=== PATIENT | female | born 2000 | race Two or more races ===

== ENCOUNTER 2025-06-23 22:56 | Emergency (ER) | payer MEDICAID, SELFPAY ==
[2025-06-23 22:57] VITALS: BMI 36.6
[2025-06-23 23:35] VITALS: BP 115/73; PULSE 90; RESP 18; TEMP 37.2; O2SAT 99
--- NOTE | 2025-06-24 00:23 | PD.EDVAGBL ---
ED OB Contraction Preg RMI/HPI General Chief complaint: Vaginal Bleeding Stated complaint: VAGINAL BLEEDING AND 13 WEEKS Time Seen by Provider: 06/23/25 23:44 Arrival date/time: 06/23/25 22:56 RME / HPI RME / HPI Narrative: Dr. Rosado?s Main ED Evaluation: 24yo female with EGA 13 weeks coming in with mild abdominal cramping and vaginal spotting x 6 hours. No lightheadedness, dizziness, or near syncope. No fever or chills. No dysuria. PMH/PSH unremarkable excluding . Nondrinker. Nonsmoker. Related Data Home Medications ?Medication ?Instructions ?Recorded ?Confirmed folic acid 800 mcg tablet 0.8 mg PO QDAY 03/20/22 03/20/22 vitamin-ferrous fumarate 1 tab PO QDAY 03/20/22 03/20/22 28 mg iron-folic acid 800 mcg tablet ( Vitamins with Minerals) Previous Rx's ?Medication ?Instructions ?Recorded hydrocodone 5 mg-acetaminophen 325 1 tab PO Q4H PRN pain #30 tabs 03/21/22 mg tablet amoxicillin 875 mg-potassium 1 tab PO Q12H #10 tabs 03/23/22 clavulanate 125 mg tablet doxylamine succinate 25 mg tablet 25 mg PO Q6H PRN allergy symptoms 06/24/25 #10 tabs hydrocodone 5 mg-acetaminophen 325 1 tab PO Q8H PRN pain #14 tabs 06/24/25 mg tablet Allergies Allergy/AdvReac Type Severity Reaction Status Date / Time No Known Allergies Allergy Verified 06/23/25 22:57 Review of Systems Review of Systems Systems Reviewed: All systems reviewed, normal except as documented Past Medical History Past Medical History NEUROLOGIC: Negative Neurological Disorders or Seizures CARDIAC: Negative Cardiac Disorders or Congestive Heart Failure RESPIRATORY: Negative Chronic Obstructive Pulmonary Disease (COPD) GASTROINTESTINAL: Positive Gastrointestinal Disorders and Obesity; Negative Hepatitis GENITOURINARY: Negative Genitourinary Disorders or Renal Disease MUSCULOSKELETAL: Negative Musculoskeletal Disorders ENDOCRINE: Negative Endocrine Disorders, Diabetes Mellitus Type 1 or Diabetes Mellitus Type 2 HEMATOLOGIC: Positive Blood Disorders and Anemia OTHER HISTORY: Negative Hospitalization, Autoimmune Disease, Down Syndrome, Developmental Delay, Shingles, Falls, Blood Transfusions, Blood Transfusion Reaction, Anesthesia Reactions, Organ Transplant, Chemotherapy, Radiation Therapy, Hyperbaric Therapy, MRSA, VRSA, Vancomycin-Resistant Enterococci, Human Immunodeficiency Virus (HIV), Chicken Pox, Measles, Mumps, Rubella (Kazakh Measles), Pertussis, Clostridium Difficile or Cancer Family History FAMILY HISTORY: Negative Family Psychiatric Problems, Family Respiratory Disorders, Family Cardiac Disorders, Family Gastrointestinal Problems, Family Cancer, Family Surgery or Family Anesthesia Reaction Surgical History SURGICAL: Negative Section or Organ Transplant Social History SMOKING STATUS: Never smoker SUBSTANCE USE: does not use ED Exam Narrative Physical exam: GENERAL APPEARANCE: alert and oriented x 4, well-developed, well-nourished, nontoxic, no acute distress VITALS: All vitals were reviewed and the pulse ox is 99% on room air, which is normal according to my interpretation. HEENT: Normocephalic, atraumatic; pupils equal, round, reactive to light; EOMI; mucous membranes pink, moist; oropharynx clear NECK: Supple LUNGS: CTABL; no wheezes, no rales, no rhonchi HEART: Regular rate, regular rhythm; normal S1, S2; no murmurs ABDOMEN: non distended; soft, no tenderness BACK: no CVA tenderness EXTREMITIES: atraumatic; no edema NEUROLOGIC: awake; alert and oriented x4; cranial nerves II-XII grossly intact; no focal sensory or motor deficits PSYCHIATRIC: appropriate mood and affect SKIN: warm, dry, normal color; no rashes Course Quality Measures none Orders Category Date Time Status Continuous Pulse Oximetry NOW Care 06/24/25 00:38 Active NPO NEEDED Care 06/24/25 00:38 Active US OB <= 14 weeks fetus Stat Exams 06/24/25 00:38 Taken Beta HCG,Quantitative Stat Lab 06/24/25 03:52 Received CBC Stat Lab 06/24/25 00:40 Completed CMP [Comprehensive Metabolic Panel] Stat Lab 06/24/25 00:40 Completed HCG,Qualitative Serum Stat Lab 06/24/25 00:40 Completed Type and Screen Stat Lab 06/24/25 01:28 Completed Urinalysis, C/S if Indicated Stat Lab 06/24/25 00:39 Ordered Morphine Inj Med 06/24/25 03:26 Discontinued 4 mg IVP X1 ONE Prochlorperazine Inj [Compazine Inj] Med 06/24/25 03:26 Discontinued 5 mg IM X1 ONE Sodium Chloride 0.9% 1000 ml [Ns] 1,000 ml Med 06/24/25 03:07 Discontinued IV 999 mls/hr Vital Signs Vital signs: Vital Signs Temperature 99 F 06/23/25 23:35 Pulse Rate 90 06/23/25 23:35 Respiratory Rate 18 06/23/25 23:35 Blood Pressure 115/73 06/23/25 23:35 Pulse Oximetry (%) 99 06/23/25 23:35 Oxygen Delivery Method Room Air 06/23/25 23:35 Vaginal Bleeding MDM Narrative MDM Narrative: Scribe Attestation: 06/24/25 - Poncho, Valentina Freeman am scribing for and in the presence of Dr. Rosado. 24yo female with EGA 13 weeks coming in with mild abdominal cramping and vaginal spotting x 6 hours. No lightheadedness, dizziness, or near syncope. Please see PE findings. Lab markers demonstrate stable Hgb, no thrombocytopenia, chemistries are unremarkable. Patient placed on manager respiratory and given IV fluids to correct volume deficit. Patient's tachycardia resolved and several incremental doses of morphine were required to control pain. Pelvic US demonstrate subchorionic hem. This was discussed with the INVESTIGATION OFFICER on-call, who suggests fluid resuscitation and close OB follow-up. Dx: threatened AB Patient data External records reviewed:: [facility] previous records (Per chart review, patient was seen here on 08/24/21 for abdominal pain.) Clinical information provided by:: patient Social determinants that could affect healthcare access:: none Patient has the following chronic illnesses:: none How is presenting disease/condition affected by chronic disease/condition?: no chronic disease Evaluation data The following diagnostics were reviewed and interpreted by me:: lab results and radiology exam(s) Lab and/or radiology exams considered but not ordered:: none Interpretation Summary: [facility] Preliminary Report Draft Patient: TYRELL ZUNIGA [facility]. Record#: [id number] Birthdate: 2000 Age/Sex: 24 / F Location: [facility] Attending Dr: Ordering Physician: Date of Service: Procedure(s): Accession Number(s): cc: ~ Obstetric ultrasound (transabdominal with Doppler). June 24, 2025 0047 hours Clinical history: Rule out demise. Technique: Real-time ultrasound was performed using Duplex scanning including arterial inflow, venous outflow, color and spectral Doppler analysis of both ovaries. Comparison: No prior study is available for comparison. Findings: Echogenic structure within the cervix/vaginal canal. There is an intrauterine gestation with a single live fetus of mean gestational age 14 weeks and 0 days (CRL = 8.1 cm). cardiac activity is present at heart rate of 120 beats per minute. Subchorionic hemorrhage versus placental abruption measuring 1.8 cm in thickness. The ovaries were not visualized. There is no free fluid in the pelvis. Impression: 1. Intrauterine gestation with a single live fetus of mean gestational age 14 weeks and 0 days. 2. Subchorionic hemorrhage versus placental abruption measuring 1.8 cm in thickness. Obstetrics service consult is recommended. 3. Echogenic structure within the cervix/vaginal canal. Please correlate clinically. 4. The ovaries were not visualized. Consider correlation with MRI. Discussion Details: Results verbally communicated to : Dr. Mir at 03:57 AM 06/24/2025 Report Electronically Signed By: Dario Carpenter 06/24/2025 4:01:36 AM [EST] Medications / Prescriptions Medications or Prescriptions considered but not ordered:: none Medication administrations:: Medication Administration History Discontinued Medications Sodium Chloride (Ns) 1,000 mls @ 999 mls/hr IV .Q1H1M ONE Stop: 06/24/25 04:07 Last Admin: 06/24/25 03:19 Dose: 999 mls/hr Documented By: ANU Morphine Sulfate (Morphine Sulf Inj 10 Mg/Ml Vial) 4 mg IVP X1 ONE Stop: 06/24/25 03:27 Last Admin: 06/24/25 04:15 Dose: 4 mg Documented By: LASHELL Prochlorperazine Edisylate (Prochlorperazine Inj 5 Mg/Ml Vial 2 Ml) 5 mg IM X1 ONE; Protocol Stop: 06/24/25 03:27 Last Admin: 06/24/25 04:16 Dose: 5 mg Documented By: LASHELL see above Consultations Consultation(s) initiated? (list below): Yes Consultation #1 (Physician, Specialty, Details): Discussed case with Dr. Garcia from [employer] regarding consultation. Discussed patients ED course, exam findings, labs, and radiology results. States placental abruption is exceedingly unlikely at 13/14 weeks gestation and given the size of the subchorionic hemorrhage, it's highly likely this will seal over and the patient will carry to full-term. Time: 04:15 Diagnosis Vaginal Bleeding Differential Diagnosis: threatened , incomplete and other (vaginal bleeding in ) Most likely diagnosis given after review of the tests above:: see clinical impression below Admission Indicated Admission indicated?: not indicated Admission Request Was there a request for admission?: No Disposition Plan Disposition Plan: Discharge Discharge Attestation Discharge Attestation: The patient and all family members were given an opportunity to ask questions and understood the discharge instructions. Discharge instructions specifically effects, indications for sooner follow up or return to the emergency department, and the expected course of current diagnosis. Patient condition: Stable Discharge Plan Plan Patient Disposition: HOME (Self Care) Discharge Disposition comment: Stable Prescriptions/Referrals Prescriptions/Med Rec: New hydrocodone-acetaminophen 5-325 mg tablet 1 tab PO Q8H MDD 3 tab PRN (Reason: pain) Qty: 14 0RF doxylamine succinate 25 mg tablet 25 mg PO Q6H PRN (Reason: allergy symptoms) Qty: 10 0RF No Action vit-iron fum-folic ac [ Vitamin with Minerals] 28 mg iron- 800 mcg Tablet 1 tab PO QDAY folic acid 800 mcg Tablet 0.8 mg PO QDAY hydrocodone-acetaminophen 5-325 mg tablet 1 tab PO Q4H MDD 5 PRN (Reason: pain) Qty: 30 0RF amoxicillin-pot clavulanate 875-125 mg tablet 1 tab PO Q12H Qty: 10 0RF Referrals: Ainsley Haynes PA-C [Primary Care Provider] - In 1 week Problem List Clinical Impression: Threatened Patient/Caregiver Discharge Instructions Discharge Activity: activity as tolerated Diet Instructions: Force fluids Education Materials: ED Possible Miscarriage ... Additional Instructions: 4/avoid pelvic sex. Follow-up with INVESTIGATION OFFICER physician within 3 to 5 days for reevaluation. Return for increasing hemorrhage i.e. saturating 1 pad per hour lightheadedness dizziness fevers or worsening illness. Print Language: Azeri Stand Alone Forms: [facility] Award Info., Patient Portal Info Letter
--- NOTE | 2025-06-24 00:38 | XR_ITS ---
Examination: Complete OB ultrasound, less than 14 weeks, transabdominal Date and time of exam: June 24, 2025, 0047 hours INDICATIONS: Pelvic cramping and severe vaginal bleeding beginning 10:00 PM last night. Technique: Obstetrical ultrasound images less than 14 weeks performed via transabdominal imaging Findings: A normal shaped single intrauterine gestation is present in the uterus. CRL 8.1 cm corresponds to 14 weeks 0 days gestational age, cardiac motion 120 BPM Subchorionic hemorrhage versus placental abruption 1.8 cm in thickness, I would favor subchorionic hemorrhage Possible small areas of blood in the cervix Ultrasonographic survey of visible structures unremarkable. Amniotic fluid volume appears appropriate for this estimated gestational age. Ovaries obscured by bowel gas IMPRESSION: Viable intrauterine gestation 14 weeks 0 day gestational age Subchorionic hemorrhage versus placental abruption measuring 18 mm in thickness, I would favor subchorionic hemorrhage Recommend short-term follow-up pelvic sonography in the a.m., 8:00 AM
[2025-06-24 01:18] VITALS: BP 129/79; PULSE 99; RESP 20; TEMP 37.4; O2SAT 100
[2025-06-24 01:54] LABS: Basophils # (Auto) 0.0 Thou/mm3 (0.0-0.2); Basophils % (Auto) 0 % (0-2.5); Eosinophils # (Auto) 0.1 Thou/mm3 (0.0-0.5); Eosinophils % (Auto) 1 % (0-10); Hematocrit 34.6 % (36.0-46.0); Hemoglobin 11.7 g/dL (12.0-16.0); Immature Granulocytes Auto 0.03 Thou/mm3 (0.00-0.00); Lymphocytes # (Auto) 2.4 Thou/mm3 (1.0-4.8); Lymphocytes % (Auto) 24 % (10-50); Mean Corpuscular HGB Conc 33.8 g/dl (31.0-37.0); Mean Corpuscular Hemoglobin 28.6 pg (25.0-35.0); Mean Corpuscular Volume 85 fL (80-100); Monocytes # (Auto) 0.7 Thou/mm3 (0.0-0.8); Monocytes % (Auto) 7 % (0-12); Neutrophils # (Auto) 6.9 Thou/mm3 (1.8-7.7); Neutrophils % (Auto) 68 % (37-80); Nucleated Red Blood Cell # 0.00 Thou/mm3 (0.00-0.00); Nucleated Red Blood Cell % 0 /100 WBC (0); Platelet Count 318 Thou/mm3 (140-440); RDW Standard Deviation 38.9 fL (36.4-46.3); Red Blood Count 4.09 Miln/mm3 (4.00-5.20); White Blood Count 10.0 Thou/mm3 (3.6-11.0)
[2025-06-24 02:04] LABS: HCG,Qualitative Serum Positive
[2025-06-24 02:08] LABS: Alanine Aminotransferase 25 U/L (10-49); Albumin, Serum 4.4 gm/dL (3.5-5.0); Albumin/Globulin Ratio 1.8 (1.2-2.2); Alkaline Phosphatase 68 U/L (46-116); Anion Gap 8 (7-16); Aspartate Amino Transferase 26 U/L (0-34); BUN/Creatinine Ratio 16 Ratio (12-20); Bilirubin,Total 0.2 mg/dL (0.3-1.2); Blood Urea Nitrogen 8 mg/dL (9-23); Calcium 10.3 mg/dL (8.3-10.6); Calcium (Corrected) 10.3 mg/dL (8.5-10.1); Carbon Dioxide 24.1 mMol/L (20.0-31.0); Chloride 106 mMol/L (98-107); Creatinine (Component) 0.5 mg/dL (0.6-1.3); Estimated Creatinine Clearance 201.2 mL/min (>60); Globulin 2.5 gm/dL (2.3-3.5); Glucose 84 mg/dL (74-106); Osmolality,Calculated 272 (275-295); Potassium 3.7 mMol/L (3.4-5.1); Sodium 138 mMol/L (136-145); Total Protein 6.9 gm/dL (5.7-8.2); eGFR > 60 See Note
[2025-06-24 02:42] VITALS: BP 122/68; PULSE 95; RESP 24; TEMP 37.3; O2SAT 98
[2025-06-24] MEDS: SODIUM CHLORIDE 0.9% 1000 ML 1,000 ML 999 ML IV (03:19)
--- NOTE | 2025-06-24 04:02 | PRELIM_ITS ---
Obstetric ultrasound (transabdominal with Doppler). June 24, 2025 0047 hours Clinical history: Rule out demise. Technique: Real-time ultrasound was performed using Duplex scanning including arterial inflow, venous outflow, color and spectral Doppler analysis of both ovaries. Comparison: No prior study is available for comparison. Findings: Echogenic structure within the cervix/vaginal canal. There is an intrauterine gestation with a single live fetus of mean gestational age 14 weeks and 0 days (CRL = 8.1 cm). cardiac activity is present at heart rate of 120 beats per minute. Subchorionic hemorrhage versus placental abruption measuring 1.8 cm in thickness. The ovaries were not visualized. There is no free fluid in the pelvis. Impression: 1. Intrauterine gestation with a single live fetus of mean gestational age 14 weeks and 0 days. 2. Subchorionic hemorrhage versus placental abruption measuring 1.8 cm in thickness. Obstetrics service consult is recommended. 3. Echogenic structure within the cervix/vaginal canal. Please correlate clinically. 4. The ovaries were not visualized. Consider correlation with MRI. Discussion Details: Results verbally communicated to : Dr. Mir at 03:57 AM 06/24/2025 Report Electronically Signed By: Dario Carpenter 06/24/2025 4:01:36 AM [EST]
[2025-06-24] MEDS: MORPHINE SULF INJ 10 MG/ML VIAL 4 MG IVP (04:15)
[2025-06-24] MEDS: PROCHLORPERAZINE INJ 5 MG/ML VIAL 2 ML IM (04:16)
[2025-06-24 04:58] LABS: Beta HCG,Quantitative 90079 mIU/mL (<5.0)
[2025-06-24 05:00] VITALS: BP 138/85; PULSE 86; RESP 13; TEMP 37.3; O2SAT 98
[2025-06-24 08:20] VITALS: BP 106/59; PULSE 86; RESP 16; TEMP 36.7; O2SAT 99
== END 2025-06-24 07:20 | disposition home or self-care (01) ==
PROVIDERS: Emergency Provider Emergency Medicine; PCP Physician Assistant
DX: O20.0 Threatened abortion (principal); Z3A.14 14 weeks gestation of pregnancy
CPT/HCPCS: 36415; 76801; 80053; 81001; 84702; 84703; 85025; 86850; 86900; 86901; 96361; 96372; 96374; 99284; J0780; J2270; J7030